=== PATIENT | female | born 1990 | race Caucasian/White ===

== ENCOUNTER 2017-10-31 19:21 | Emergency (ER) | payer OTHER ==
[~2017-10-31] VITALS: Ht 170.2 cm; Wt 85.7 kg
[2017-10-31 20:01] LABS: ABSOLUTE BASOPHILS 0.1 thou/uL (0.0-0.2); ABSOLUTE EOSINOPHILS 0.1 thou/uL (0.0-0.7); ABSOLUTE LYMPHOCYTES 1.9 thou/uL (0.8-5.3); ABSOLUTE MONOCYTES 0.6 thou/uL (0.0-1.2); ABSOLUTE NEUTROPHILS 14.9 thou/uL (1.6-8.1); BASOPHILS 0.8 %; EOSINOPHILS 0.4 %; HEMATOCRIT 43.6 % (37.0-47.0); HEMOGLOBIN 14.4 gm/dL (12.0-15.0); LYMPHOCYTES 10.8 %; MCH 29.5 pg (26.0-34.0); MCV 89.5 fL (80.0-100.0); MONOCYTES 3.2 %; MPV 6.7 fl. (7.2-11.1); NUCLEATED RBCS 0 /100WBC; PLATELET COUNT* 315 thou/uL (150-400); POLYS 84.8 %; RBC 4.87 mil/uL (4.20-5.00); WBC 17.6 thou/uL (4.0-11.0)
[2017-10-31 20:10] LABS: URINE BLOOD NEGATIVE (Negative); URINE CLARITY CLEAR; URINE COLOR YELLOW; URINE GLUCOSE-RANDOM NEGATIVE (Negative); URINE KETONES TRACE (Negative); URINE LEUKOCYTES-REFLEX NEGATIVE (Negative); URINE NITRITE-REFLEX NEGATIVE (Negative); URINE PROTEIN 1+ (Negative); URINE SPECIFIC GRAVITY 1.025 (1.005-1.030); URINE UROBILINOGEN 0.2 E.U./dl (0.2-1.0)
[2017-10-31 20:12] LABS: CALCIUM 8.8 mg/dL (8.5-10.1); POTASSIUM 3.9 mmol/L (3.5-5.1)
[2017-10-31 20:14] LABS: ICTOTEST (BILI CONFIRMATORY) Negative (Negative); URINE BILIRUBIN 1+ (Negative)
[2017-10-31 20:16] LABS: ALBUMIN 3.4 g/dL (3.4-5.0); TOTAL BILIRUBIN 0.4 mg/dL (<0.1-1.0); TOTAL PROTEIN 7.5 g/dL (6.4-8.2)
[2017-10-31] MEDS ORDERED: PEPCID20 MG PO (21:20)
[2017-10-31] MEDS ORDERED: ZOFRAN ODT4 MG PO (21:20)
[2017-10-31] MEDS ORDERED: PRILOSEC 20 MG20 MG PO (21:20)
[2017-10-31] MEDS ORDERED: HYDROCODONE-AP1 EAC6 PO (21:21)
[2017-10-31 21:34] VITALS: BP 156/94
== END 2017-10-31 21:36 | disposition home or self-care (01) ==
LOC: M.ERS 19:21
PROVIDERS: Physician Assistant
DX: D72.829 Elevated white blood cell count, unspecified (principal); R10.13 Epigastric pain